=== PATIENT | female | born 1965 | race Caucasian/White ===

== ENCOUNTER → 2018-04-24 07:41 | Outpatient (CLI) | payer OTHER, SELFPAY ==
--- NOTE | 2018-04-24 | DI.MG.S_ITS ---
BILATERAL DIGITAL SCREENING MAMMOGRAM 3D/2D WITH CAD: 04/24/2018 CLINICAL: Routine screening. Comparison is made to exams dated: 12/14/2013 mammogram, 04/07/2012 mammogram, and 04/06/2011 mammogram - [facility]. The tissue of both breasts is heterogeneously dense. This may lower the sensitivity of mammography. Current study was also evaluated with a Computer Aided Detection (CAD) system. No significant masses, calcifications, or other findings are seen in either breast. There has been no significant interval change. IMPRESSION: NEGATIVE There is no mammographic evidence of malignancy. A 1 year screening mammogram is recommended. This exam was interpreted at Station ID: [id number]. NOTE: For mammograms, a report in lay terms will be sent to the patient. Approximately 15% of breast malignancies will not be visualized mammographically. In the management of a palpable breast mass, a negative mammogram must not discourage biopsy of a clinically suspicious lesion. Electronically Signed By: Rafael wetzel/cintia:04/24/2018 11:26:56 letter sent: Normal Exam ACR BI-RADS Category 1: Negative 3341F
== END ==
PROVIDERS: Family Provider Family Medicine; PCP Family Medicine; Visit Provider Family Medicine
DX: Z12.31 Encounter for screening mammogram for malignant neoplasm of breast (principal)
CPT/HCPCS: 77063; 77067

== ENCOUNTER → 2018-12-16 12:31 | Outpatient (REF) | payer OTHER, SELFPAY ==
[2018-12-16 12:59] LABS: Cholesterol 187 mg/dL (140-199); Glucose Promotional 92 mg/dL (70-100); HDL Cholesterol 54 mg/dL (40-60); LDL Cholesterol Calculated 118 mg/dL (<100); Triglycerides 74 mg/dL (35-150)
== END ==
LOC: LAB 12:31
PROVIDERS: Family Provider Family Medicine; PCP Family Medicine
DX: Z13.220 Encounter for screening for lipoid disorders (principal); Z13.1 Encounter for screening for diabetes mellitus
CPT/HCPCS: 80061; 82947

== ENCOUNTER → 2019-01-29 11:50 | Outpatient (CLI) | payer OTHER, SELFPAY ==
[2019-01-29 12:10] LABS: Add Manual Diff / Slide Review NO; Basophils Absolute Auto 0 /uL (0-100); Basophils Percent Auto 0.6 % (0-2); Eosinophils Absolute Auto 0 /uL (0-450); Eosinophils Percent Auto 0.5 % (2-4); Hematocrit 37.3 % (36-46); Hemoglobin 12.4 g/dL (12.0-16.0); Lymphocytes Absolute Auto 1700 /uL (1100-4500); Lymphocytes Percent Auto 34.7 % (25-40); Mean Corpuscular HGB Conc 33.4 % (30-36); Mean Corpuscular Hemoglobin 28.5 PG (26-34); Mean Corpuscular Volume 85.4 fL (80-100); Monocytes Absolute Auto 400 /uL (0-900); Monocytes Percent Auto 7.7 % (3-14); Neutrophils Absolute Auto 2800 /uL (1500-7000); Neutrophils Percent Auto 56.5 % (50-75); Platelet Count 325 X10^3/uL (150-400); Red Blood Cell Count 4.36 X10^6/uL (4.0-5.2); Red Cell Distribution Width 13.5 % (11.6-14.8)
[2019-01-29 12:36] LABS: BUN Creatinine Ratio 21.3 (6-22); Blood Urea Nitrogen 17 mg/dL (7-17); Calcium 9.2 mg/dL (8.4-10.2); Carbon Dioxide 29 mmol/L (22-32); Chloride 104 mmol/L (98-107); Estimated Glomerular Filt Rate > 60.0 mL/min (>60); Glucose 100 mg/dL (70-100); HEMOLYSIS < 15 (0-50); Potassium 4.6 mmol/L (3.4-5.1); Sodium 138 mmol/L (137-145)
[2019-01-29 14:04] LABS: Free T3, Triiodothyronine Free 3.36 pg/mL (2.77-5.27); Free T4, Direct Thyroxine 1.02 ng/dL (0.78-2.19)
== END ==
PROVIDERS: Family Provider Family Medicine; PCP Family Medicine; Visit Provider Physician Assistant
DX: R00.2 Palpitations (principal)
CPT/HCPCS: 36415; 80048; 83735; 84439; 84443; 84481; 85025

== ENCOUNTER → 2019-02-09 10:54 | Outpatient (CLI) | payer OTHER, SELFPAY ==
--- NOTE | 2019-02-27 15:44 | P.HOLT.S_ITS ---
Clinical Cytogenetics Director Report Referral & Results Date Patient Seen: 02/09/19 Requesting provider: Kristina Oglesby Indication: Dizziness Duration of monitoring (days): 14 Diary information: There were no patient diary entries There were 23 patient triggered events associated with sinus rhythm, PACs, and PVCs Data: Minimum heart rate identified was 40 beats per minute at 02:14 on 02/19/2019 Maximum heart rate was 163 beats per minute at 09:29 on 02/11/2019 Less than 1% of identified beats or either ventricular supraventricular ectopic in origin Impression: Essentially normal 14 day teletypesetter monitor. No etiology for dizziness identified on this study
== END ==
PROVIDERS: Family Provider Family Medicine; PCP Family Medicine; Visit Provider Family Medicine
DX: R42 Dizziness and giddiness (principal); R00.2 Palpitations
CPT/HCPCS: 0296T; 0298T

== ENCOUNTER → 2019-03-05 09:09 | Outpatient (CLI) | payer OTHER, SELFPAY ==
--- NOTE | 2019-03-05 09:10 | DI.ECHO.S_ITS ---
[facility] +---------+ : : [address] : : : : [place], [place] : : : : [id number] : : : : Phone: [phone] Echocardiogram Report + + :Name: MAYRA GARCIA Study Date: 03/05/2019 Height: 67 in : :[facility] Exam Location: [facility] Weight: 150 lb : : Gender: Female BSA: 1.8 m2 : :: 1965 Age: 53 yrs BP: 105/65 mmHg: :Reason For Study: Palpitations : :Ordering Physician: Kristina : :[place] Performed By: Tenisha Page : + + Interpretation Summary 1) Normal left ventricular thickness, size, wall motion, and systolic function (EF 60-65%). 2) Normal right ventricular size and function. 3) No significant valvular abnormalities. 4) No prior Echo available for comparison. Procedure: A two-dimensional transthoracic echocardiogram with color flow and Doppler was performed. The study quality was technically adequate. There is no prior echocardiogram noted for this patient. The patient was in normal sinus rhythm during the exam. Left Ventricle: The left ventricle is normal in size, wall thickness, and systolic function without any focal wall motion abnormalities. The ejection fraction is estimated to be 60-65%. Diastolic parameters suggest probable normal left ventricular diastolic function and normal filling pressures. Right Ventricle: The right ventricle is normal in size and function. Atria: Both atria are normal in size. There is no Doppler evidence for an interatrial shunt. Mitral Valve: The mitral valve is normal in structure and function. There is no mitral regurgitation noted. Aortic Valve: The aortic valve is trileaflet. The aortic valve opens well. There is no aortic valve stenosis. No aortic regurgitation is present. Tricuspid Valve: The tricuspid valve is normal in structure and function. There is a trace or physiologic amount of tricuspid regurgitation. Pulmonary artery pressures cannot be estimated because of the lack of a measurable TR jet velocity. Pulmonic Valve: The pulmonic valve is not well visualized. Great Vessels: The aortic root is normal size. The ascending aorta is normal in size. The aortic arch is normal in size. The pulmonary is not well visualized. The IVC is of normal diameter and collapses greater than 50% with a sniff. This suggests a low right atrial pressure of 3 mm Hg. Pericardium/ Pleura There is no pericardial effusion. There is no pleural effusion. MMode/2D Measurements & Calculations LVIDd: 4.4 cm LVOT diam: 2.2 cm LVIDs: 2.9 cm Ao root diam: 3.0 cm FS: 34.1 % asc Aorta Diam: 3.0 cm EPSS: 0.60 cm Ao Arch Diam (Prox Trans): 2.4 cm IVSd: 0.69 cm LVPWd: 0.61 cm LV baldwin. diameter/BSA (cm/m^2): 2.4 LV sys. diameter/BSA (cm/m^2): 1.6 LA A2 area: 17.1 cm2 RA long axis: 4.3 cm LA A4 area: 15.1 cm2 RA area: 12.1 cm2 LA length (vol): 4.4 cm RA vol: 28.7 ml LA vol: 49.8 ml RA : 16.1 ml/m2 LA vol index: 27.8 ml/m2 IVC diam: 1.5 cm RVD1 (basal): 3.5 cm RVD2 (mid): 3.0 cm TAPSE: 1.9 cm Doppler Measurements & Calculations Ao V2 max: 119.4 cm/sec LVOT Max Daniele: 91.6 cm/sec Ao V2 mean: 86.2 cm/sec LV V1 max P.4 mmHg Ao max P.7 mmHg LV V1 VTI: 17.7 cm Ao mean P.2 mmHg RANGEL(I,D): 3.0 cm2 Ao V2 VTI: 22.5 cm RANGEL(V,D): 2.9 cm2 sev ratio: 0.79 RANGEL indexed to BSA (cm^2/m^2): 1.7 MV E max daniele: 58.6 cm/sec PA V2 max: 65.4 cm/sec MV A max daniele: 47.2 cm/sec PA V2 mean: 44.8 cm/sec MV E/A: 1.2 PA mean P.91 mmHg Med Peak E' Daniele: 9.0 cm/sec PA Accel Time: 0.13 sec E/E' med: 6.5 Lat Peak E' Daniele: 12.9 cm/sec E/E' lat: 4.6 E/e' average: 5.5 MV dec time: 0.26 sec MV P1/2t: 74.3 msec MV P1/2t max daniele: 59.2 cm/sec SV(LVOT): 68.0 ml MVA(P1/2t): 3.0 cm2 Reading Physician:11:41 AM
== END ==
PROVIDERS: Family Provider Family Medicine; PCP Family Medicine; Visit Provider Family Medicine
DX: R00.2 Palpitations (principal)
CPT/HCPCS: 93306

== ENCOUNTER → 2019-05-01 08:00 | Outpatient (CLI) | payer OTHER, SELFPAY ==
--- NOTE | 2019-05-01 08:02 | DI.MG.S_ITS ---
BILATERAL DIGITAL SCREENING MAMMOGRAM 3D/2D WITH CAD: 05/01/2019 CLINICAL: Routine screening. Comparison is made to exams dated: 04/24/2018 mammogram - [facility], 12/14/2013 mammogram, and 04/07/2012 mammogram - [facility]. The tissue of both breasts is heterogeneously dense. This may lower the sensitivity of mammography. Current study was also evaluated with a Computer Aided Detection (CAD) system. No significant masses, calcifications, or other findings are seen in either breast. There has been no significant interval change. IMPRESSION: NEGATIVE There is no mammographic evidence of malignancy. A 1 year screening mammogram is recommended. This exam was interpreted at Station ID: [id number]. NOTE: For mammograms, a report in lay terms will be sent to the patient. Approximately 15% of breast malignancies will not be visualized mammographically. In the management of a palpable breast mass, a negative mammogram must not discourage biopsy of a clinically suspicious lesion. Electronically Signed By: Hermila bridges/cintia:05/01/2019 11:14:54 letter sent: Normal Exam ACR BI-RADS Category 1: Negative 3341F
== END ==
PROVIDERS: PCP Family Medicine; Visit Provider Family Medicine
DX: Z12.31 Encounter for screening mammogram for malignant neoplasm of breast (principal)
CPT/HCPCS: 77063; 77067

== ENCOUNTER → 2020-09-19 16:13 | Outpatient (CLI) | payer OTHER, SELFPAY ==
[2020-09-19 17:07] LABS: Add Manual Diff / Slide Review NO; Basophils Absolute Auto 0 /uL (0-100); Basophils Percent Auto 0.5 % (0-2); Eosinophils Absolute Auto 0 /uL (0-450); Eosinophils Percent Auto 0.6 % (2-4); Hematocrit 37.1 % (36-46); Hemoglobin 12.5 g/dL (12.0-16.0); Lymphocytes Absolute Auto 2200 /uL (1100-4500); Lymphocytes Percent Auto 47.5 % (25-40); Mean Corpuscular HGB Conc 33.6 % (30-36); Mean Corpuscular Hemoglobin 29.9 PG (26-34); Monocytes Absolute Auto 300 /uL (0-900); Monocytes Percent Auto 7.3 % (3-14); Neutrophils Absolute Auto 2100 /uL (1500-7000); Neutrophils Percent Auto 44.1 % (50-75); Platelet Count 238 X10^3/uL (150-400); Red Blood Cell Count 4.17 X10^6/uL (4.0-5.2); Red Cell Distribution Width 12.6 % (11.6-14.8); White Blood Cell Count 4.7 X10^3/uL (4.5-11.0)
[2020-09-19 17:48] LABS: Thyroid Stimulating Hormone 2.17 uIU/mL (0.47-4.68)
[2020-09-19 18:11] LABS: Free T3, Triiodothyronine Free 3.42 pg/mL (2.77-5.27); Free T4, Direct Thyroxine 1.09 ng/dL (0.78-2.19)
[2020-09-20 05:51] LABS: Thyroid Peroxidase Antibodies 11 IU/mL (0-34)
[2020-09-20 14:36] LABS: Anti Thyroglobulin Antibody <1.0 IU/mL (0.0-0.9)
== END ==
PROVIDERS: PCP Family Medicine; Referring Provider Family Medicine; Visit Provider Family Medicine
DX: E07.89 Other specified disorders of thyroid (principal)
CPT/HCPCS: 36415; 84439; 84443; 84481; 85025; 86376; 86800